=== PATIENT | female | born 1995 ===

== ENCOUNTER 2024-03-31 08:38 | Day surgery (SDC) | payer OTHER ==
[2024-03-29 12:14] LABS: HEMATOCRIT 42.2 % (36.0-45.00); HEMOGLOBIN 14.4 g/dL (12.0-15.00); MEAN CELL VOLUME 90.7 fL (80.00-100.00); MEAN CORPUSCULAR HEMOGLOBIN 30.9 pg (27.00-32.0); MEAN CORPUSCULAR HGB CONC 34.1 g/dl (32.0-36.0); PLATELET COUNT 412 K/uL (150-450); RED BLOOD COUNT 4.66 M/uL (4.00-6.00); RED CELL DISTRIBUTION WIDTH 12.8 % (11.5-14.5)
[2024-03-29 12:17] LABS: URINE BILIRRUBIN NEGATIVE (NEGATIVE); URINE BLOOD SMALL; URINE GLUCOSE NEGATIVE (NEGATIVE); URINE KETONE NEGATIVE (NEGATIVE); URINE NITRATE NEGATIVE; URINE PROTEIN NEGATIVE (NEGATIVE); URINE UROBILINOGEN 0.2 E.U./dl
[2024-03-29 12:35] LABS: URINE APPEARANCE CLEAR; URINE COLOR YELLOW
[2024-03-29 12:37] LABS: URINE BACTERIA MANY; URINE CRYSTALS FEW /HPF; URINE LEUKOCYTE TRACE; URINE MUCUS MODERATE
[2024-03-29 12:39] LABS: INR 0.96; PARTIAL THROMBOPLASTIN TIME 27.7 SECONDS (22.0-34.0); PROTHROMBIN TIME 10.5 SECONDS (9.0-11.5)
[2024-03-29 12:47] LABS: ALBUMIN 4.4 gm/dL (3.4-5.0); CALCIUM 10.3 mg/dL (8.5-10.1); CREATININE SERUM 0.63 mg/dL (0.55-1.02); GFR 112.52; PHOSPHOROUS 3.2 mg/dL (2.5-4.9); POTASSIUM 5.08 mEq/L (3.5-5.1)
[2024-03-29 13:29] VITALS: BP 128/87
[~2024-03-31] VITALS: Ht 170.2 cm; Wt 81.6 kg
[2024-03-31] MEDS ORDERED: CEFAZOLIN SODIUM 1,000 MG VIAL IV ONE (11:30)
[2024-03-31] MEDS ORDERED: DEXAMETHASONE SODIUM PHOSPHATE 4 MG/ML VIAL IV ONE (11:30)
[2024-03-31] MEDS ORDERED: LIDOCAINE HCL 1%/EPINEPHRINE 20ML VIAL IJ ONE (11:30)
[2024-03-31] MEDS ORDERED: AMOX-CLAV 875-1 EACH PO (12:09)
[2024-03-31] MEDS ORDERED: AYR SALINE50 ML NASAL (12:09)
== END 2024-03-31 14:50 | disposition home or self-care (01) ==
LOC: CIR.AMB 08:38
PROVIDERS: ATTEND Otolaryngology Otology & Neurotology
DX: J34.9 Unspecified disorder of nose and nasal sinuses (principal); J34.3 Hypertrophy of nasal turbinates; J32.4 Chronic pansinusitis